=== PATIENT | male | born 1970 | race Caucasian/White ===

== ENCOUNTER 2022-09-29 02:30 | Emergency (ER) | payer OTHER, SELFPAY ==
[2022-09-29] VITALS (17 sets, daily range): BP systolic 119–146; BP diastolic 70–131; PULSE 85–100; RESP 19–30; TEMP 36.4; O2SAT 96–99
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
== END 2022-09-29 04:16 | disposition home or self-care (01) ==
PROVIDERS: Emergency Provider Emergency Medicine
DX: S00.81XA Abrasion of other part of head, initial encounter (principal); S20.211A Contusion of right front wall of thorax, initial encounter; V89.2XXA Person injured in unspecified motor-vehicle accident, traffic, initial encounter
CPT/HCPCS: 80053; 99284; 80320; 83735; 84484; 85025

== ENCOUNTER 2022-09-29 09:59 | Emergency (ER) | payer OTHER, SELFPAY ==
[2022-09-29 10:00] VITALS: BP 151/76; PULSE 97; RESP 23; TEMP 36.6; O2SAT 98
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
[2022-09-29 10:54] LABS: Abs Immature Grans 0.06 10^3/uL (0.0-0.06); Absolute Eosinophil Count 0.01 10^3/uL (0.0-0.7); Absolute Lymphocyte Count 1.17 10^3/uL (1.2-3.4); Basophils % 0.4; Eosinophils % 0.1; HGB 14.7 g/dL (13.5-17.5); Immature Grans % 0.5; Lymphocytes % 10.3; MCH 30.8 pg (27.0-33.0); MCHC 33.4 % (32.0-36.0); MCV 92 fL (80-95); MPV 8.8 fL (8.0-11.0); Monocytes % 8.8; Neutrophils % 79.9; Platelet Count 222 10^3/uL (130-400); RBC 4.78 10^6/uL (4.36-5.78); RDW 11.9 % (11.8-14.1); RDW-SD 40.7 fL; WBC 11.38 10^3/uL (4.4-10.8)
[2022-09-29 10:56] LABS: Absolute Basophil Count 0.05 10^3/uL (0.0-0.2); Absolute Neutrophil Count 9.09 10^3/uL (1.2-6.7)
[2022-09-29] MEDS: ACETAMINOPHEN 1,000 MG/100 ML BTL 400 MG IVPB (11:00)
[2022-09-29 11:14] LABS: ALT 81 U/L (16-63); AST 94 U/L (15-37); Albumin 4.4 g/dL (3.4-5.0); Alkaline Phosphatase 86 U/L (46-116); Anion Gap 9.1 mmol/L (3-11); BUN 13 mg/dL (7-18); Bilirubin, Total 0.7 mg/dL (0.2-1.0); CO2 27.9 mmol/L (21.0-32.0); Calcium 9.4 mg/dL (8.5-10.1); Chloride 102 mmol/L (98-107); Estimated GFR 89.44 (mL/min/1.73m2); Glucose 115 mg/dL (74-106); Lipase 140 U/L (73-393); Potassium 4.2 mmol/L (3.5-5.1); Sodium 139 mmol/L (136-145); Total Protein 7.6 g/dL (6.4-8.2); Troponin I < 50 ng/L (<or=60)
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
[2022-09-29] MEDS: Normal Saline 1,000 ML 1000 ML IV (11:24)
[2022-09-29] MEDS: Omnipaque 350 MG/ML 100 ML BTL 125 ML IJ (11:52)
[2022-09-29] MEDS: Normal Saline Flush 10 ML SYR IVP (11:53)
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
[2022-09-29 12:33] LABS: Bilirubin Negative (Negative); Blood Negative (Negative); Clarity Clear (Clear); Glucose Negative (Negative); Ketones 15 mg/dL (Negative); Leukocyte Esterase Negative (Negative); Nitrite Negative (Negative); Specific Gravity >= 1.030 (1.005-1.025); Urobilinogen 0.2 EU/dL (Up TO 0.2)
[2022-09-29 12:50] LABS: Bacteria Rare HPF (Negative); C & S Indicated? No; Casts Negative LPF (Negative); Crystals Negative HPF (Negative); Epithelial Cells Negative HPF (Negative); Mucus Moderate (Negative); RBC Negative HPF (0-2); WBC Negative HPF (0-5)
== END 2022-09-29 13:01 | disposition home or self-care (01) ==
PROVIDERS: Emergency Provider Nurse Practitioner Family
DX: M54.2 Cervicalgia (principal); M54.50 Low back pain, unspecified; R07.89 Other chest pain; Z79.899 Other long term (current) drug therapy
CPT/HCPCS: 36415; 74177; 80053; 83690; 96361; 96365; 96366; 99284; 70450; 71260; 72125; 80320; 81003; 81015; 83735; 84484; 85025; J0131; J3490